=== PATIENT | male | born 1940 | race Caucasian/White ===

== ENCOUNTER → 2016-07-14 | Outpatient (CLI) | payer OTHER ==
[~2016-07-14] MED LIST: ACET-1311 PO; BETH10TA2 PO; CARV6.252 PO; CHOL200027 PO; CPR500 PO; DUTA0.5C PO; LEVE100S10 PO; LEVO112T4 PO; LEVO150T9 PO; NITR1CAP16 PO; PANT40TA PO; POLY335019 PO; POLYSOL4 OP; PTDOPS OP; TAMS0.4C38 PO; TRAZ50TA35 PO
[2016-07-14 09:40] LABS: BASO % 0.5 %; BASO ABS # 0.03 K/uL (0-0.2); COMPLETE YES; EOS % 0.5 %; HEMATOCRIT 32.5 % (42-52); IG% 2.2 %; LYMPH % 7.7 %; LYMPH ABS # 0.45 K/uL (1.2-3.4); MEAN CELL VOLUME 97.3 fL (80-100); MEAN CORPUSCULAR HEMOGLOBIN 32.3 pg (25-34); MEAN CORPUSCULAR HGB CONC 33.2 g/dl (32-36); MEAN PLATELET VOLUME 8.4 fL (7.4-10.4); MONO % 12.1 %; PLATELET COUNT 264 K/uL (130-400); RED BLOOD COUNT 3.34 M/uL (4.7-6.1); WHITE BLOOD COUNT 5.85 K/uL (4.8-10.8)
[2016-07-14 09:56] LABS: BLOOD UREA NITROGEN 10 mg/dl (7-18); CALCIUM 8.7 mg/dl (8.5-10.1); CARBON DIOXIDE 32 mmol/L (21-32); CHLORIDE 99 mmol/L (98-107); CREATININE 0.72 mg/dl (0.60-1.40); GLUCOSE 134 mg/dl (70-99); POTASSIUM 4.2 mmol/L (3.5-5.1); SODIUM 139 mmol/L (136-145)
== END ==
LOC: C.LABVPSUA 08:47
PROVIDERS: ATTEND Internal Medicine Critical Care Medicine
DX: G93.41 Metabolic encephalopathy (principal)

== ENCOUNTER 2016-07-26 09:00 | Emergency (ER) | payer OTHER ==
[~2016-07-26] VITALS: Ht 167.6 cm; Wt 81.2 kg
[2016-07-26 09:13] VITALS: TEMP 36.6; Ht 167.6 cm; Wt 81.2 kg
--- NOTE | 2016-07-26 09:51 | EMERGENCY ROOM VISIT NOTE ---
History Report prepared by Chevy: Rebel Masters Under the Supervision of: Dr. Agus Lowery M.D. First contact with patient: 09:23 Chief Complaint: ALTERED MENTAL STATUS Stated Complaint: ALTERED MENTAL STATUS History of Present Illness The patient is a 75 year old male who presents to the Emergency Room from [place] [facility] with complaints of constant bilateral lower extremity edema beginning several hours prior to arrival. As per , [place] called the , because they noticed the patient was experiencing bilateral lower extremity edema and increased urinary output. The states the patient had brain surgery on June 04 of last year. She notes the left side was impacted, and the patient has experienced left leg weakness. The states the patient is able to ambulate with a walker. She notes the patient's mental status has been consistent since the surgery. The patient associates left hip pain with today's symptoms. He notes the left hip pain worsens with pushing on the area. The states the patient has a Segura catheter in place. She denies the patient experiencing a fall recently. The states the patient is on Levothyroxine, mild blood pressure medication, Keppra, and Flomax. She denies the patient being on a blood thinner. The patient denies chest pain, shortness of breath, nausea, vomiting, and abdominal pain. 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 Review of Systems All systems have been listed, reviewed, and are negative other than those previously mentioned. Please see Additional Medical History Sheet. Past Medical & Surgical Medical Problems: (1) Brain bleed (2) Hernia (3) Hypertension (4) Hypothyroid (5) Melanoma (6) Osteoporosis (7) Seizures (8) Thyroid cancer Surgical Problems: (1) S/P brain surgery (2) S/P thyroidectomy Family History Cancer FH: osteoporosis Social History Smoking Status: Never Smoker Marital Status: Housing Status: lives with significant other Occupation Status: retired Current/Historical Medications Scheduled Bethanechol Chloride (Bethanechol Chloride), 10 MG PO TIDM Carvedilol (Coreg), 6.25 MG PO BIDM Cholecalciferol (Vitamin D-3), 2,000 UNITS PO QAM Levetiracetam (Keppra), 1,000 MG PO BID Levothyroxine Sodium (Levothyroxine Sodium), 112 MCG PO DAILYBB Nitrofurantoin Monohyd Macro (Macrobid), 100 MG PO BID Olopatadine Hydrochloride (Pataday), 1 DROPS OP QAM Pantoprazole (Protonix), 40 MG PO QAM Polyethylene Glycol 3350 (Miralax), 17 GM PO QAM Tamsulosin Hcl (Flomax), 0.8 MG PO QPM Trazodone Hcl (Trazodone), 25 MG PO HS Scheduled PRN Acetaminophen (Tylenol), 650 MG PO Q4 PRN for Pain Polyethylene Glycol-Propylene (Systane), 1 DROPS OP QID PRN for DRY EYES Allergies Coded Allergies: Sulfamethoxazole w/Trimethoprim (Verified Allergy, Unknown, unknown, ) Physical Exam Vital Signs Date Time Temp Pulse Resp B/P Pulse Ox O2 Delivery O2 Flow Rate FiO2 07/26/16 12:59 61 16 160/72 100 07/26/16 12:30 60 13 100 07/26/16 12:30 60 13 100 07/26/16 12:28 139/86 07/26/16 12:28 139/86 07/26/16 12:00 59 12 100 07/26/16 12:00 59 12 100 07/26/16 11:59 162/97 07/26/16 11:59 162/97 07/26/16 11:30 57 12 100 07/26/16 11:30 57 12 100 07/26/16 11:28 136/81 07/26/16 11:28 136/81 07/26/16 11:14 69 07/26/16 11:07 69 20 157/96 100 Room Air 07/26/16 10:59 157/96 07/26/16 10:59 157/96 07/26/16 10:26 100 Room Air 07/26/16 09:13 36.6 62 18 162/90 98 Room Air Physical Exam GENERAL: Patient awake, alert, oriented x 3. Patient follows commands. Patient does not appear toxic. Patient is adequately hydrated and well- nourished. SKIN: No erythema, pallor, cyanosis or rash HEENT: Well healed scar on top of his head without signs of infection. Normal head, pupils equal, reactive to light and accommodation. Ears normal. Oral cavity and posterior pharynx appear normal. Neck: Without adenopathy, no neck vein distention. LUNGS: Clear to auscultation. No wheezes, no rales, no rhonchi. HEART: No murmurs. No gallops. No rubs ABDOMEN: No masses, no rebound, no hepatomegaly or splenomegaly. EXTREMITIES: No signs of trauma. 2+ right leg, 3+ left leg pedal and pretibial edema, nonpitting. No calf or thigh tenderness. NEUROLOGIC: Cranial nerves II-XII within normal limits. Patient does have some weakness especially in the left leg which is thought to be secondary to prior neurological events. Medical Decision & Procedures ER Provider Diagnostic Interpretation: X ray results are stated below per my interpretation and the radiologist's interpretation. CHEST ONE VIEW PORTABLE CLINICAL HISTORY: peripheral edema pain COMPARISON STUDY: No previous studies for comparison. FINDINGS: The bones soft tissues and hemidiaphragms are normal. The cardiomediastinal silhouette is normal. The lungs are clear. The pulmonary vasculature is normal. IMPRESSION: Negative chest. Electronically signed by: Shaq Covarrubias M.D. 07/26/2016 10:01 AM LEFT PELVIS/UNILATERAL HIP 2-3VIEWS CLINICAL HISTORY: hip pain pain COMPARISON: None. DISCUSSION: Mild degenerative change of the hips bilaterally. No evidence for acetabular protrusion. No evidence for fracture or dislocation. IMPRESSION: Mild degenerative changes of the hips bilaterally. No acute process. Electronically signed by: Shaq Covarrubias M.D. 07/26/2016 9:58 AM Laboratory Results 07/26/16 10:05 Red Blood Count 3.60, Mean Corpuscular Volume 97.5, Mean Corpuscular Hemoglobin 32.8, Mean Corpuscular Hemoglobin Concent 33.6, Mean Platelet Volume 8.3, Neutrophils (%) (Auto) 76.1, Lymphocytes (%) (Auto) 10.7, Monocytes (%) (Auto) 8.3, Eosinophils (%) (Auto) 3.2, Basophils (%) (Auto) 0.3, Neutrophils # (Auto) 4.46, Lymphocytes # (Auto) 0.63, Monocytes # (Auto) 0.49, Eosinophils # (Auto) 0.19, Basophils # (Auto) 0.02 07/26/16 10:05 Test 07/26/16 10:05 07/26/16 10:25 White Blood Count 5.87 K/uL (4.8-10.8) Red Blood Count 3.60 M/uL (4.7-6.1) Hemoglobin 11.8 g/dL (14.0-18.0) Hematocrit 35.1 % (42-52) Mean Corpuscular Volume 97.5 fL (80-100) Mean Corpuscular Hemoglobin 32.8 pg (25-34) Mean Corpuscular Hemoglobin Concent 33.6 g/dl (32-36) Platelet Count 227 K/uL (130-400) Mean Platelet Volume 8.3 fL (7.4-10.4) Neutrophils (%) (Auto) 76.1 % Lymphocytes (%) (Auto) 10.7 % Monocytes (%) (Auto) 8.3 % Eosinophils (%) (Auto) 3.2 % Basophils (%) (Auto) 0.3 % Neutrophils # (Auto) 4.46 K/uL (1.4-6.5) Lymphocytes # (Auto) 0.63 K/uL (1.2-3.4) Monocytes # (Auto) 0.49 K/uL (0.11-0.59) Eosinophils # (Auto) 0.19 K/uL (0-0.5) Basophils # (Auto) 0.02 K/uL (0-0.2) RDW Standard Deviation 52.6 fL (36.4-46.3) RDW Coefficient of Variation 14.8 % (11.5-14.5) Immature Granulocyte % (Auto) 1.4 % Immature Granulocyte # (Auto) 0.08 K/uL (0.00-0.02) Anion Gap 8.0 mmol/L (3-11) Est Creatinine Clear Calc Drug Dose 98.2 ml/min Estimated GFR () 110.5 Estimated GFR (Non- 95.3 BUN/Creatinine Ratio 14.9 (10-20) Calcium Level 8.7 mg/dl (8.5-10.1) Total Bilirubin 0.5 mg/dl (0.2-1) Aspartate Amino Transf (AST/SGOT) 41 U/L (15-37) Alanine Aminotransferase (ALT/SGPT) 71 U/L (12-78) Alkaline Phosphatase 155 U/L (45-117) Troponin I < 0.015 ng/ml (0-0.045) Total Protein 6.8 gm/dl (6.4-8.2) Albumin 2.8 gm/dl (3.4-5.0) Globulin 4.0 gm/dl (2.5-4.0) Albumin/Globulin Ratio 0.7 (0.9-2) Urine Color YELLOW Urine Appearance TURBID (CLEAR) Urine pH 8.0 (4.5-7.5) Urine Specific [place] 1.007 (1.000-1.030) Urine Protein NEG (NEG) Urine Glucose (UA) NEG (NEG) Urine Ketones NEG (NEG) Urine Occult Blood 1+ (NEG) Urine Nitrite NEG (NEG) Urine Bilirubin NEG (NEG) Urine Urobilinogen NEG (NEG) Urine Leukocyte Esterase LARGE (NEG) Urine WBC (Auto) >30 /hpf (0-5) Urine RBC (Auto) 0-4 /hpf (0-4) Urine Hyaline Casts (Auto) /lpf (0-5) Urine Epithelial Cells (Auto) >30 /lpf (0-5) Urine Bacteria (Auto) 4+ (NEG) Urine Renal Epithelial Cells /lpf (0-5) Urine Pathogenic Casts 0-3 GRANULAR CASTS /lpf (0) Laboratory results as stated above per my review. Medications Administered Medications (Trade) Dose Ordered Sig/Melissa Route Start Time Stop Time Status Last Admin Dose Admin Nitrofurantoin Macrocrystals (Macrobid Cap) 100 mg ONE ONCE PO 07/26/16 12:15 07/26/16 12:16 DC 07/26/16 12:58 100 MG ECG Indication: altered mental status Rate (beats per minute): 63 Rhythm: normal sinus Findings: 1st degree AV block, LBBB (incomplete), no acute ischemic change, no ectopy ED Course 09: Past medical records reviewed. The patient was evaluated in room C6. A complete history and physical examination was performed. 1215: Ordered Macrobid Cap 100 mg PO. 1159: Upon reevaluation, the patient appeared to have improvement of his symptoms. I discussed today's findings with the patient and his . He and his verbalized agreement of the treatment plan. The patient was discharged home. Medical Decision Nurses notes reviewed. Medical history sheet reviewed. Differential diagnosis includes but is not limited to: peripheral edema, congestive heart failure, left hip fracture, metabolic disorder. According to the patient's his mental status is unchanged from the recent past. The patient does complain of some left hip pain. Multiple labs, EKG, urinalysis and imaging were obtained. Please see above. The patient does not have evidence of congestive failure. He has no hip fracture. The patient has a urinary tract infection. The Segura will be replaced and the patient will be started on Macrobid. The patient is to follow- up with Dr. Nobles and urology . I do not believe the patient is having any acute intracerebral problems including bleeds or CVA/TIA. Impression Primary Impression: Urinary tract infection Scribe Attestation The scribe's documentation has been prepared under my direction and personally reviewed by me in its entirety. I confirm that the note above accurately reflects all work, treatment, procedures, and medical decision making performed by me. Departure Information Dispostion Home / Self-Care Prescriptions Nitrofurantoin Monohyd Macro (MACROBID) 100 Mg Cap 100 MG PO BID, #19 CAP Prov: Agus Lowery M.D. 07/26/16 Referrals [facility] (PCP) Forms HOME CARE DOCUMENTATION FORM, IMPORTANT VISIT INFORMATION Patient Instructions My [facility] Additional Instructions 1 Macrobid twice a day for 10 days. Follow-up with urology on Wednesday. Follow-up with Dr. Nobles. Continue all of your current medications as prescribed.
--- NOTE | 2016-07-26 09:59 | DIAGNOSTIC IMAGING REPORT ---
LEFT PELVIS/UNILATERAL HIP 2-3VIEWS CLINICAL HISTORY: hip pain pain COMPARISON: None. DISCUSSION: Mild degenerative change of the hips bilaterally. No evidence for acetabular protrusion. No evidence for fracture or dislocation. IMPRESSION: Mild degenerative changes of the hips bilaterally. No acute process. Electronically signed by: Shaq Covarrubias M.D. 07/26/2016 9:58 AM Dictated Date/Time: 07/26/2016 9:56 AM
--- NOTE | 2016-07-26 10:02 | DIAGNOSTIC IMAGING REPORT ---
CHEST ONE VIEW PORTABLE CLINICAL HISTORY: peripheral edema pain COMPARISON STUDY: No previous studies for comparison. FINDINGS: The bones soft tissues and hemidiaphragms are normal. The cardiomediastinal silhouette is normal. The lungs are clear. The pulmonary vasculature is normal. IMPRESSION: Negative chest. Electronically signed by: Shaq Covarrubias M.D. 07/26/2016 10:01 AM Dictated Date/Time: 07/26/2016 10:00 AM
[2016-07-26 10:14] LABS: BASO % 0.3 %; BASO ABS # 0.02 K/uL (0-0.2); COMPLETE YES; EOS % 3.2 %; HEMATOCRIT 35.1 % (42-52); IG% 1.4 %; LYMPH % 10.7 %; LYMPH ABS # 0.63 K/uL (1.2-3.4); MEAN CELL VOLUME 97.5 fL (80-100); MEAN CORPUSCULAR HEMOGLOBIN 32.8 pg (25-34); MEAN CORPUSCULAR HGB CONC 33.6 g/dl (32-36); MEAN PLATELET VOLUME 8.3 fL (7.4-10.4); MONO % 8.3 %; NEUT % 76.1 %; PLATELET COUNT 227 K/uL (130-400); WHITE BLOOD COUNT 5.87 K/uL (4.8-10.8)
[2016-07-26] MEDS ORDERED: PTDOPS OP (10:15)
[2016-07-26] MEDS ORDERED: PANT40TA PO (10:15)
[2016-07-26] MEDS ORDERED: CHOL200027 PO (10:15)
[2016-07-26] MEDS ORDERED: TRAZ50TA35 PO (10:15)
[2016-07-26] MEDS ORDERED: LEVE100S10 PO (10:15)
[2016-07-26] MEDS ORDERED: POLY335019 PO (10:15)
[2016-07-26] MEDS ORDERED: CARV6.252 PO (10:15)
[2016-07-26] MEDS ORDERED: LEVO112T4 PO (10:15)
[2016-07-26] MEDS ORDERED: TAMS0.4C38 PO (10:15)
[2016-07-26] MEDS ORDERED: BETH10TA2 PO (10:15)
[2016-07-26] MEDS ORDERED: POLYSOL4 OP (10:16)
[2016-07-26] MEDS ORDERED: ACET-1311 PO (10:16)
[2016-07-26 10:26] VITALS: O2SAT 100
[2016-07-26 10:27] LABS: ALT/SGPT 71 U/L (12-78); BLOOD UREA NITROGEN 10 mg/dl (7-18); BUN/CREATININE RATIO 14.9 (10-20); CALCIUM 8.7 mg/dl (8.5-10.1); CARBON DIOXIDE 32 mmol/L (21-32); CHLORIDE 102 mmol/L (98-107); CREATININE 0.67 mg/dl (0.60-1.40); GLUCOSE 110 mg/dl (70-99); POTASSIUM 3.7 mmol/L (3.5-5.1); SODIUM 142 mmol/L (136-145)
[2016-07-26 10:32] LABS: ALB/GLOB RATIO 0.7 (0.9-2); ALKALINE PHOSPHATASE 155 U/L (45-117); AST/SGOT 41 U/L (15-37)
[2016-07-26 10:40] LABS: URINE APPEARANCE TURBID (CLEAR); URINE BILIRUBIN NEG (NEG); URINE COLOR YELLOW; URINE EPITHELIAL CELL AUTO >30 /lpf (0-5); URINE NITRITE NEG (NEG); URINE SPECIFIC GRAVITY 1.007 (1.000-1.030); UROBILINOGEN NEG (NEG); ZZURINE CULT IF INDIC CATH YES
[2016-07-26 10:41] LABS: MANUAL MICROSCOPIC REQUIRED? NO; REVIEW REQ? YES
[2016-07-26 10:50] LABS: URINE PATH CASTS 0-3 GRANULAR CASTS /lpf (0)
[2016-07-26] MEDS ORDERED: NITR1CAP16 PO (12:13)
[2016-07-26] MEDS ORDERED: NITROFURANTOIN MONOHYDRATE 100 MG CAP PO ONE (12:15)
[2016-07-26 12:59] VITALS: BP 160/72; PULSE 61; O2SAT 100
== END 2016-07-26 13:25 | disposition home or self-care (01) ==
LOC: C.EDC 09:00 → EDUNIT# 09:00 → EDBD 09:00 → C.EDC 13:25
DX: N39.0 Urinary tract infection, site not specified (principal); Z98.890 Other specified postprocedural states; I10 Essential (primary) hypertension; Z85.820 Personal history of malignant melanoma of skin; M81.0 Age-related osteoporosis without current pathological fracture; Z85.850 Personal history of malignant neoplasm of thyroid; E89.0 Postprocedural hypothyroidism; Z79.899 Other long term (current) drug therapy

== ENCOUNTER 2016-07-30 16:15 | Emergency (ER) | payer OTHER ==
[~2016-07-30] VITALS: Ht 167.6 cm; Wt 83.2 kg
[~2016-07-30 16:15] MED LIST changes: -CPR500 PO; -DUTA0.5C PO; -LEVO150T9 PO
[2016-07-30 16:26] VITALS: TEMP 36.9; Ht 167.6 cm; Wt 83.2 kg
[2016-07-30] MEDS ORDERED: CPR500 PO (17:03)
--- NOTE | 2016-07-30 17:14 | EMERGENCY ROOM VISIT NOTE ---
History Report prepared by Chevy: Akila Beasley Under the Supervision of: Dr. Samantha Roa M.D. First contact with patient: 16:33 Chief Complaint: HEAD PAIN Stated Complaint: SWELLING /HEAD AREA History of Present Illness The patient is a 75 year old male who presents to the Emergency Room with complaints of worsening pain to right side of head beginning this morning. The patient in May 2016 had brain surgery done in [place], [place]. He had the surgery for having a massive brain bleed, the cause is unknown. This morning the patient felt swelling at his surgical scar site and he also notes pain around the scar. The patient notes he did not have this pain or swelling yesterday. He does not state that the pain feels like a headache, it is more of an aching sensation. Patient does have an appointment tomorrow with neurology. He denies nausea, vomiting, shortness of breath, or chest pain. Patient states that since surgery his baseline is having slight confusion. Source of History: patient Onset: this morning Position: head (right side) Quality: ache, other (swelling) Timing: worsening Associated Symptoms: No SOB, No chest pain, No nausea, No vomiting Review of Systems See HPI for pertinent positives & negatives. A total of 10 systems reviewed and were otherwise negative. Past Medical & Surgical Medical Problems: (1) Brain bleed (2) Hernia (3) Hypertension (4) Hypothyroid (5) Melanoma (6) Osteoporosis (7) Seizures (8) Thyroid cancer Surgical Problems: (1) S/P brain surgery (2) S/P thyroidectomy Family History Cancer FH: osteoporosis Social History Smoking Status: Never Smoker Marital Status: Housing Status: lives with significant other Occupation Status: retired Current/Historical Medications Scheduled Bethanechol Chloride (Bethanechol Chloride), 10 MG PO TIDM Carvedilol (Coreg), 6.25 MG PO BIDM Cholecalciferol (Vitamin D-3), 2,000 UNITS PO QAM Ciprofloxacin (Ciprofloxacin HCl), 500 MG PO BID Levetiracetam (Keppra), 1,000 MG PO BID Levothyroxine Sodium (Levothyroxine Sodium), 112 MCG PO DAILYBB Olopatadine Hydrochloride (Pataday), 1 DROPS OP QAM Pantoprazole (Protonix), 40 MG PO QAM Polyethylene Glycol 3350 (Miralax), 17 GM PO QAM Tamsulosin Hcl (Flomax), 0.8 MG PO QPM Trazodone Hcl (Trazodone), 25 MG PO HS Scheduled PRN Acetaminophen (Tylenol), 650 MG PO Q4 PRN for Pain Polyethylene Glycol-Propylene (Systane), 1 DROPS OP QID PRN for DRY EYES Allergies Coded Allergies: Sulfamethoxazole w/Trimethoprim (Verified Allergy, Unknown, unknown, ) Physical Exam Vital Signs Date Time Temp Pulse Resp B/P Pulse Ox O2 Delivery O2 Flow Rate FiO2 07/30/16 21:24 76 25 157/94 96 Room Air 07/30/16 20:48 74 24 158/91 96 Room Air 07/30/16 20:03 69 16 160/96 93 Room Air 07/30/16 19:07 68 17 156/83 98 Room Air 07/30/16 17:30 72 21 179/106 93 Room Air 07/30/16 17:09 65 07/30/16 16:31 67 20 175/74 98 Room Air 07/30/16 16:26 36.9 64 19 155/79 98 Room Air Physical Exam Vital signs reviewed. General: Chronically ill elderly male, in no significant distress. HEENT: No scleral icterus, PERRLA, neck supple. Post cranial scar to right side of head with some soft tissue swelling, no overlying erythema, incision healing well. Cardiovascular: Regular rate and rhythm, no extra sounds. Pulmonary: Clear to auscultation bilaterally, normal work of breathing. Abdomen: Soft, nontender, nondistended, positive bowel sounds. Musculoskeletal: Atraumatic. Mild edema bilaterally to lower extremities with compression hose in place. Neurologic: Patient awake and responsive to questions. He is slightly confused to current events. Patient is able to follow commands. Skin: Warm, dry, no rash Medical Decision & Procedures ER Provider Diagnostic Interpretation: CT results as stated below per my review and radiologist interpretation: CT HEAD WITHOUT CONTRAST (CT) CLINICAL HISTORY: Right head swelling. History of intracranial hemorrhage. COMPARISON STUDY: No previous studies for comparison. TECHNIQUE: Axial CT of the brain is performed from the vertex to the skull base. IV contrast was not administered for this examination. CT DOSE: 634.23 mGy.cm FINDINGS: There is a 3.5 cm right frontal hemorrhage with a surrounding area of cystic encephalomalacia measuring 5 cm. There is no significant midline shift. There are postsurgical changes of a right frontotemporal craniotomy. There is subjacent dural thickening. There are patchy white matter hypodensities likely on a small vessel basis. There is no evidence of pathologic ventricular dilatation. There is no evidence of acute sinusitis IMPRESSION: 1. Postcraniotomy changes on the right with mild subjacent dural thickening 2. Large area of cystic encephalomalacia within the right frontal lobe. Inferiorly, there is a 3.5 cm parenchymal hemorrhage. 3. No evidence of midline shift. 4. Mild right-sided scalp edema overlying the craniotomy site Electronically signed by: Valentino iY M.D. 07/30/2016 6:15 PM Dictated Date/Time: 07/30/2016 6:11 PM Laboratory Results 07/30/16 17:30 Red Blood Count 3.54, Mean Corpuscular Volume 98.3, Mean Corpuscular Hemoglobin 31.9, Mean Corpuscular Hemoglobin Concent 32.5, Mean Platelet Volume 8.7, Neutrophils (%) (Auto) 69.4, Lymphocytes (%) (Auto) 14.0, Monocytes (%) (Auto) 11.2, Eosinophils (%) (Auto) 3.9, Basophils (%) (Auto) 0.4, Neutrophils # (Auto ) 3.23, Lymphocytes # (Auto) 0.65, Monocytes # (Auto) 0.52, Eosinophils # (Auto ) 0.18, Basophils # (Auto) 0.02 07/30/16 17:30 Test 07/30/16 17:30 07/30/16 19:30 White Blood Count 4.65 K/uL (4.8-10.8) Red Blood Count 3.54 M/uL (4.7-6.1) Hemoglobin 11.3 g/dL (14.0-18.0) Hematocrit 34.8 % (42-52) Mean Corpuscular Volume 98.3 fL (80-100) Mean Corpuscular Hemoglobin 31.9 pg (25-34) Mean Corpuscular Hemoglobin Concent 32.5 g/dl (32-36) Platelet Count 239 K/uL (130-400) Mean Platelet Volume 8.7 fL (7.4-10.4) Neutrophils (%) (Auto) 69.4 % Lymphocytes (%) (Auto) 14.0 % Monocytes (%) (Auto) 11.2 % Eosinophils (%) (Auto) 3.9 % Basophils (%) (Auto) 0.4 % Neutrophils # (Auto) 3.23 K/uL (1.4-6.5) Lymphocytes # (Auto) 0.65 K/uL (1.2-3.4) Monocytes # (Auto) 0.52 K/uL (0.11-0.59) Eosinophils # (Auto) 0.18 K/uL (0-0.5) Basophils # (Auto) 0.02 K/uL (0-0.2) RDW Standard Deviation 53.0 fL (36.4-46.3) RDW Coefficient of Variation 14.6 % (11.5-14.5) Immature Granulocyte % (Auto) 1.1 % Immature Granulocyte # (Auto) 0.05 K/uL (0.00-0.02) Prothrombin Time 9.7 SECONDS (9.0-12.0) Prothromb Time International Ratio 0.9 (0.9-1.1) Activated Partial Thromboplast Time 25.2 SECONDS (21.0-31.0) Partial Thromboplastin Ratio 1.0 Anion Gap 6.0 mmol/L (3-11) Est Creatinine Clear Calc Drug Dose 88.8 ml/min Estimated GFR () 105.5 Estimated GFR (Non- 91.0 BUN/Creatinine Ratio 16.6 (10-20) Calcium Level 9.1 mg/dl (8.5-10.1) Total Bilirubin 0.4 mg/dl (0.2-1) Direct Bilirubin < 0.1 mg/dl (0-0.2) Aspartate Amino Transf (AST/SGOT) 23 U/L (15-37) Alanine Aminotransferase (ALT/SGPT) 45 U/L (12-78) Alkaline Phosphatase 133 U/L (45-117) Total Protein 7.1 gm/dl (6.4-8.2) Albumin 3.1 gm/dl (3.4-5.0) Urine Color YELLOW Urine Appearance CLEAR (CLEAR) Urine pH 8.0 (4.5-7.5) Urine Specific [place] 1.005 (1.000-1.030) Urine Protein NEG (NEG) Urine Glucose (UA) NEG (NEG) Urine Ketones NEG (NEG) Urine Occult Blood NEG (NEG) Urine Nitrite NEG (NEG) Urine Bilirubin NEG (NEG) Urine Urobilinogen NEG (NEG) Urine Leukocyte Esterase TRACE (NEG) Urine WBC (Auto) 1-5 /hpf (0-5) Urine RBC (Auto) 0-4 /hpf (0-4) Urine Hyaline Casts (Auto) 0 /lpf (0-5) Urine Epithelial Cells (Auto) 0-5 /lpf (0-5) Urine Bacteria (Auto) NEG (NEG) Laboratory results per my review. Medications Administered Medications (Trade) Dose Ordered Sig/Melissa Route Start Time Stop Time Status Last Admin Dose Admin Fentanyl Citrate (Fentanyl Inj) 50 mcg NOW STAT IV 07/30/16 21:14 07/30/16 21:15 DC 07/30/16 21:19 50 MCG ED Course 1705: Past medical records reviewed. The patient was evaluated in room B8. A complete history and physical examination was performed. 1822: I discussed the patient's CT results with him and his . 1844: I reviewed the patient's case with Dr. Watkins - [facility]. He will evaluate the patient for further management. 1851: I discussed with the patient and his the plan for transfer and informed them on what Dr. Watkins said. 2113: Fentanyl Inj 50 mcg IV. 2115: The patient will be transferred to [facility] for further evaluation by Neurology via ALS. Medical Decision The patient is a 75 year old male who presents to the ED with complaints of head pain. Differentials include Intracranial hemorrhage, intracranial mass, migraine headache, tension headache , sinusitis, meningitis, post surgical infection. This patient was evaluated and appeared to be in no significant distress. Physical examination reveals an elderly male with some chronic illness. He has a swelling over the right spiritism over the surgical scar. CT scan of the head was performed and reveals intraparenchymal hemorrhage in an area of encephalomalacia. There is no previous CT scan of the head at our facility. The patient had his surgery in [place]. According to radiology, it is difficult to assess whether or not this is acute blood. Does not appear to be causing any midline shift. I did discuss case with Dr. Watkins of neurosurgery at [facility]. He has agreed to accept the patient in transfer. As the patient seems to not have any serious sequelae of the bleed on head CT at this time, the patient will be sent by ground to [facility]. Patient was given 50 mg of IV fentanyl prior to transfer for lower back pain. Patient and family are aware of the plan and agree. Consults Time Called: 1842 Consulting Physician: Dr. [facility] Returned Call: [phone] I reviewed the patient's case with Dr. [facility]. He will evaluate the patient for further management. Impression Primary Impression: Intraparenchymal hemorrhage of brain Critical Care I have personally spent greater than 35 minutes of critical care time in the direct management of this patient. This includes bedside care, interpretation of diagnostic studies, and testing, discussion with consultants, patient, and family members, and other required patient management activities. This 35 minutes is in excess of all separately billable procedures. Scribe Attestation The scribe's documentation has been prepared under my direction and personally reviewed by me in its entirety. I confirm that the note above accurately reflects all work, treatment, procedures, and medical decision making performed by me. Departure Information Dispostion Transfer Acute Care Facility ([facility]) Referrals [facility] (PCP)
[2016-07-30 18:01] LABS: BASO % 0.4 %; BASO ABS # 0.02 K/uL (0-0.2); COMPLETE YES; EOS % 3.9 %; HEMATOCRIT 34.8 % (42-52); IG% 1.1 %; LYMPH ABS # 0.65 K/uL (1.2-3.4); MEAN CELL VOLUME 98.3 fL (80-100); MEAN CORPUSCULAR HEMOGLOBIN 31.9 pg (25-34); MEAN CORPUSCULAR HGB CONC 32.5 g/dl (32-36); MEAN PLATELET VOLUME 8.7 fL (7.4-10.4); MONO % 11.2 %; NEUT % 69.4 %; PLATELET COUNT 239 K/uL (130-400); RED BLOOD COUNT 3.54 M/uL (4.7-6.1); WHITE BLOOD COUNT 4.65 K/uL (4.8-10.8)
[2016-07-30 18:15] LABS: INR 0.9 (0.9-1.1); PROTHROMBIN TIME (PATIENT) 9.7 SECONDS (9.0-12.0)
--- NOTE | 2016-07-30 18:16 | DIAGNOSTIC IMAGING REPORT ---
CT HEAD WITHOUT CONTRAST (CT) CLINICAL HISTORY: Right head swelling. History of intracranial hemorrhage. COMPARISON STUDY: No previous studies for comparison. TECHNIQUE: Axial CT of the brain is performed from the vertex to the skull base. IV contrast was not administered for this examination. CT DOSE: 634.23 mGy.cm FINDINGS: There is a 3.5 cm right frontal hemorrhage with a surrounding area of cystic encephalomalacia measuring 5 cm. There is no significant midline shift. There are postsurgical changes of a right frontotemporal craniotomy. There is subjacent dural thickening. There are patchy white matter hypodensities likely on a small vessel basis. There is no evidence of pathologic ventricular dilatation. There is no evidence of acute sinusitis IMPRESSION: 1. Postcraniotomy changes on the right with mild subjacent dural thickening 2. Large area of cystic encephalomalacia within the right frontal lobe. Inferiorly, there is a 3.5 cm parenchymal hemorrhage. 3. No evidence of midline shift. 4. Mild right-sided scalp edema overlying the craniotomy site Electronically signed by: Valentino Yi M.D. 07/30/2016 6:15 PM Dictated Date/Time: 07/30/2016 6:11 PM
[2016-07-30 18:29] LABS: ALT/SGPT 45 U/L (12-78); AST/SGOT 23 U/L (15-37); BLOOD UREA NITROGEN 12 mg/dl (7-18); BUN/CREATININE RATIO 16.6 (10-20); CALCIUM 9.1 mg/dl (8.5-10.1); CARBON DIOXIDE 35 mmol/L (21-32); CHLORIDE 102 mmol/L (98-107); CREATININE 0.75 mg/dl (0.60-1.40); GLUCOSE 97 mg/dl (70-99); POTASSIUM 3.9 mmol/L (3.5-5.1); SODIUM 143 mmol/L (136-145)
[2016-07-30 18:31] LABS: ALKALINE PHOSPHATASE 133 U/L (45-117)
[2016-07-30 19:49] LABS: URINE APPEARANCE CLEAR (CLEAR); URINE BILIRUBIN NEG (NEG); URINE COLOR YELLOW; URINE EPITHELIAL CELL AUTO 0-5 /lpf (0-5); URINE NITRITE NEG (NEG); URINE SPECIFIC GRAVITY 1.005 (1.000-1.030); UROBILINOGEN NEG (NEG); ZZUR CULT IF INDIC CLEAN CATCH NO
[2016-07-30 19:51] LABS: MANUAL MICROSCOPIC REQUIRED? NO; REVIEW REQ? NO
[2016-07-30] MEDS ORDERED: FENTANYL CITRATE INJ 50 MCG/1 ML 2 ML VIAL IV STA (21:14)
[2016-07-30] MEDS ORDERED: FENTANYL CITRATE INJ 50 MCG/1 ML 2 ML VIAL ONE (21:14)
[2016-07-30 21:24] VITALS: BP 157/94; PULSE 76; O2SAT 96
== END 2016-07-30 21:26 | disposition short-term general hospital (02) ==
LOC: EDBD 16:15 → C.EDB 16:19
DX: I61.9 Nontraumatic intracerebral hemorrhage, unspecified (principal); I10 Essential (primary) hypertension; M81.0 Age-related osteoporosis without current pathological fracture; Z85.850 Personal history of malignant neoplasm of thyroid; E89.0 Postprocedural hypothyroidism; Z82.62 Family history of osteoporosis; Z79.899 Other long term (current) drug therapy; R33.9 Retention of urine, unspecified; N13.9 Obstructive and reflux uropathy, unspecified; R53.81 Other malaise

== ENCOUNTER → 2016-07-30 | Outpatient (CLI) | payer OTHER ==
[2016-07-30 09:58] LABS: HEMATOCRIT 34.3 % (42-52); MEAN CORPUSCULAR HEMOGLOBIN 32.4 pg (25-34); MEAN CORPUSCULAR HGB CONC 32.4 g/dl (32-36); PLATELET COUNT 223 K/uL (130-400); RED BLOOD COUNT 3.43 M/uL (4.7-6.1); WHITE BLOOD COUNT 4.51 K/uL (4.8-10.8)
[2016-07-30 10:09] LABS: BLOOD UREA NITROGEN 11 mg/dl (7-18); BUN/CREATININE RATIO 12.4 (10-20); CALCIUM 9.1 mg/dl (8.5-10.1); CARBON DIOXIDE 32 mmol/L (21-32); CHLORIDE 100 mmol/L (98-107); CREATININE 0.91 mg/dl (0.60-1.40); GLUCOSE 187 mg/dl (70-99); POTASSIUM 3.7 mmol/L (3.5-5.1); SODIUM 137 mmol/L (136-145)
== END | disposition home or self-care (01) ==
LOC: C.LABVPSUA 09:21
PROVIDERS: ATTEND Internal Medicine Critical Care Medicine
DX: R33.9 Retention of urine, unspecified (principal); N13.9 Obstructive and reflux uropathy, unspecified; R53.81 Other malaise

== ENCOUNTER → 2016-08-03 | Outpatient (CLI) | payer OTHER ==
[~2016-08-03] MED LIST changes: +CPR500 PO; +DUTA0.5C PO; +LEVO150T9 PO; -NITR1CAP16 PO
== END | disposition home or self-care (01) ==
LOC: C.LABVPSUA 09:12
PROVIDERS: ATTEND Internal Medicine Critical Care Medicine
DX: Z85.850 Personal history of malignant neoplasm of thyroid (principal)

== ENCOUNTER → 2016-08-04 | Outpatient (CLI) | payer OTHER | LOC: C.LABVPSUA 15:10 | PROVIDERS: ATTEND Internal Medicine Critical Care Medicine | DX: R56.9 Unspecified convulsions (principal) ==

== ENCOUNTER → 2016-08-06 | Outpatient (CLI) | payer OTHER ==
--- NOTE | 2016-08-08 06:08 | CODING QUERY NO DIAGNOSIS ---
TREATMENT RENDERED WITHOUT A DIAGNOSIS To promote full compliance with coding requirements relating to patient care, physician participation is requested in all cases of bank analyst uncertainty. Please assist us with providing a diagnosis/symptom for the test(s) below: A diagnosis/symptom was not documented on your Order. A valid diagnosis/symptom is required to bill all insurances. Please remember that we are unable to code a diagnosis of rule out, probable, possible, questionable, or suspected. Tests that require a diagnosis: DOS: 08/06/16 * TSH DIAGNOSIS: Provider Signature: Date: Thank you Thelma [facility] Information Management Once completed, please kindly fax back to [phone] For questions please call [phone]
== END ==
LOC: C.LABVPSUA 09:30
PROVIDERS: ATTEND Internal Medicine Critical Care Medicine
DX: E03.9 Hypothyroidism, unspecified (principal)

== ENCOUNTER 2016-08-14 17:01 | Emergency (ER) | payer OTHER ==
[~2016-08-14] VITALS: Ht 172.7 cm; Wt 81.0 kg
[~2016-08-14 17:01] MED LIST changes: -DUTA0.5C PO; -LEVO150T9 PO
[2016-08-14 17:09] VITALS: TEMP 36.9; Ht 172.7 cm; Wt 81.0 kg
[2016-08-14] MEDS ORDERED: NiCARDipine IV 25 MG in SODIUM CHLORIDE 0.9% 250ML 240 ML IV STA (17:36)
[2016-08-14 17:47] LABS: BASO % 0.2 %; BASO ABS # 0.01 K/uL (0-0.2); COMPLETE YES; EOS % 2.7 %; HEMATOCRIT 37.3 % (42-52); IG% 0.8 %; LYMPH % 15.6 %; LYMPH ABS # 0.81 K/uL (1.2-3.4); MEAN CELL VOLUME 92.3 fL (80-100); MEAN CORPUSCULAR HEMOGLOBIN 30.7 pg (25-34); MEAN CORPUSCULAR HGB CONC 33.2 g/dl (32-36); MEAN PLATELET VOLUME 8.3 fL (7.4-10.4); MONO % 7.1 %; NEUT % 73.6 %; PLATELET COUNT 249 K/uL (130-400); RED BLOOD COUNT 4.04 M/uL (4.7-6.1); WHITE BLOOD COUNT 5.18 K/uL (4.8-10.8)
[2016-08-14 17:53] LABS: BLOOD UREA NITROGEN 13 mg/dl (7-18); BUN/CREATININE RATIO 17.6 (10-20); CALCIUM 9.7 mg/dl (8.5-10.1); CARBON DIOXIDE 31 mmol/L (21-32); CHLORIDE 102 mmol/L (98-107); CREATININE 0.72 mg/dl (0.60-1.40); GLUCOSE 114 mg/dl (70-99); POTASSIUM 4.1 mmol/L (3.5-5.1); SODIUM 140 mmol/L (136-145)
[2016-08-14 17:59] LABS: INR 0.9 (0.9-1.1); PARTIAL THROMBOPLASTIN RATIO 0.9
[2016-08-14] MEDS ORDERED: LEVO150T9 PO (18:16)
[2016-08-14] MEDS ORDERED: DUTA0.5C PO (18:16)
[2016-08-14 18:57] VITALS: BP 155/83; PULSE 72; O2SAT 96
--- NOTE | 2016-08-14 23:20 | EMERGENCY ROOM VISIT NOTE ---
History Report prepared by Joseiblaurence: Shilpa Mills Under the Supervision of: Dr. Seferino Leonardo M.D. First contact with patient: 17:23 Chief Complaint: NEURO SYMPTOMS Stated Complaint: RT SCIENTOLOGY HEMATOMA Nursing Triage Summary: pt to the ED via EMS from home after having a follow up MRI today and was told that he has some bleeding on his brain that was worsening than previous MRI pt daughter reports pt became confused last night at 6pm saying that he bought a red porsch. pt has some increasing swelling to the right temporal region pt daughter reported pt fell 2 nights ago pt has no c/o pain and is confused. 4/5 UE and 4/5 LE strength History of Present Illness The patient is a 75 year old male who presents to the Emergency Room with complaints of an abnormal MRI. He was brought to the ED via EMS from home and is accompanied by his and daughter. His reports he underwent a "major craniotomy" in May 2016 at [facility] after he was found to have "minor brain bleeding". She states the doctors never figured out what caused the bleed. The patient is not currently on any blood thinners. Earlier today the patient had a follow up brain MRI which showed "a large hematoma in his right temporal lobe" which was worse than previous bleeding seen on CT scan in July 2016. The patient's daughter reports he fell out of bed 2 days ago, while trying to get up on his own. He had been staying at the [facility] and was found by nursing staff on his knees near the bed, but the incident was unwitnessed. The patient currently complains of feeling "a little cold" and "confused" here in the ED. He denies any headache or new numbness or weakness in any of his extremities.His states that he normally has weakness to the lower extremities, especially left. His states his confusion has been persistent since he underwent surgery in May. The patient does not have a history of hypertension. 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 A total of 10 systems reviewed and were otherwise negative. Past Medical & Surgical Medical Problems: (1) Brain bleed (2) Hernia (3) Hypertension (4) Hypothyroid (5) Melanoma (6) Osteoporosis (7) Seizures (8) Thyroid cancer Surgical Problems: (1) S/P brain surgery (2) S/P thyroidectomy Family History Cancer FH: osteoporosis Social History Smoking Status: Never Smoker Alcohol Use: none Drug Use: none Marital Status: Housing Status: lives with significant other Occupation Status: retired Current/Historical Medications Scheduled Carvedilol (Coreg), 6.25 MG PO BIDM Cholecalciferol (Vitamin D-3), 2,000 UNITS PO QAM Dutasteride (Avodart), 0.5 MG PO DAILY Levetiracetam (Keppra), 1,000 MG PO BID Levothyroxine Sodium (Levothyroxine Sodium), 1 TAB PO DAILY Olopatadine Hydrochloride (Pataday), 1 DROPS OP QAM Pantoprazole (Protonix), 40 MG PO QAM Polyethylene Glycol 3350 (Miralax), 17 GM PO QAM Trazodone Hcl (Trazodone), 25 MG PO HS Scheduled PRN Acetaminophen (Tylenol), 650 MG PO Q4 PRN for Pain Polyethylene Glycol-Propylene (Systane), 1 DROPS OP QID PRN for DRY EYES Allergies Coded Allergies: Sulfamethoxazole w/Trimethoprim (Verified Allergy, Unknown, unknown, ) Physical Exam Vital Signs Date Time Temp Pulse Resp B/P Pulse Ox O2 Delivery O2 Flow Rate FiO2 08/14/16 18:57 72 16 155/83 96 Room Air 08/14/16 18:49 70 16 160/74 96 Room Air 08/14/16 18:30 72 15 147/78 97 Room Air 08/14/16 18:21 74 22 154/84 96 08/14/16 18:10 72 19 144/77 98 Room Air 08/14/16 18:02 66 12 140/82 97 Room Air 08/14/16 17:56 63 20 175/85 95 08/14/16 17:53 64 152/80 08/14/16 17:52 67 194/92 08/14/16 17:11 63 08/14/16 17:09 36.9 64 20 191/96 97 Room Air Physical Exam Constitutional: Vital signs reviewed. Eyes: Pupils are equal round reactive to light. Conjunctiva are noninjected. ENT: Pharynx is clear without erythema or exudate. Mucous membranes are moist. Neck supple without meningeal signs. Respiratory: Clear to auscultation bilaterally. Breath sounds are equal bilaterally. Cardiovascular: Regular rate and rhythm. No rubs or gallops. GI: Soft, nondistended and nontender. Bowel sounds are present. Musculoskeletal: No peripheral edema. No lower extremity tenderness. Integumentary: No cyanosis. Neurological: The patient is awake and alert. Cranial nerves II-XII are intact , although the patient would not cooperate fully. He would not smile but he has no facial droop. Sensation is intact to light touch all extremities. Weakness to the left leg, difficulty testing proximal right limb. Normal speech. No pronator drift. No dysdiadochokinesis. No limb ataxia. Psychiatric: Normal affect. Medical Decision & Procedures ER Provider Diagnostic Interpretation: This MRI was reviewed and interpreted by the radiologist and reviewed by myself. MRI OF THE BRAIN COMBO CLINICAL HISTORY: Follow-up intracranial hemorrhage. COMPARISON STUDY: CT of the brain dated 07/30/2016. TECHNIQUE: MRI of the brain was performed utilizing various T1 and T2-weighted sequences in the axial, sagittal, and coronal planes. Contrast-enhanced sequences were acquired following the administration of 7.8 cc of Gadavist. FINDINGS: Brain parenchyma: There is a large hematoma centered in the right temporal lobe which measures 2.8 x 3.8 x 3.5 cm. There is surrounding edema with effacement of the overlying cortical sulci and the right lateral ventricle. Only minimal midline shift is seen. A large focus of right frontal encephalomalacia is similar to previous. A small volume of hemorrhage is also seen within the right frontal lobe anterior and inferior to the site of encephalomalacia. This measures up to 11 mm. T1 hyperintense material within the encephalomalacia cavity may represent chronic change or blood products. There is no restricted diffusion typical for acute ischemia. No enhancing mass lesion is identified on the postcontrast images. There are age-related involutional changes noting mild patchy subcortical and periventricular microangiopathic disease. Mild dural thickening and enhancement due to the right-sided craniotomy site likely represents postoperative change. No extra-axial fluid collection is seen. The cerebellar tonsils are normal in configuration. Ventricles, sulci, and cisterns: See above. No intraventricular hemorrhage is seen. Pituitary and sella: Mild mucosal thickening is seen within the maxillary antra and ethmoid sinuses. There is a right mastoid effusion. Intracranial vasculature: Normal flow voids are maintained at the skull base. Orbits: The bony orbits are grossly intact. Orbital contents are normal in appearance. Sinuses and mastoids: Clear. Calvarium: There are changes from right-sided craniotomy. Cervical cord: Partially visualized cervical spinal cord is normal in morphology and signal intensity. IMPRESSION: 1. There is a large hematoma centered in the right temporal lobe which measures up to 3.8 cm. There is significant surrounding edema, and this is new from 07/30/2016. 2. Right frontal encephalomalacia is again noted and consistent with a previous insult. A small amount of hemorrhage is seen in the right frontal lobe anterior/inferior to this site. 3. T1 hyperintense debris is present within the encephalomalacia cavity. This could represent chronic change versus blood products. 4. Postoperative change is noted on the right convexity. 5. There is no restricted diffusion identified typical for acute ischemia. No enhancing mass is seen. Electronically signed by: Tae Argueta M.D. 08/14/2016 12:50 PM Laboratory Results 08/14/16 17:15 Red Blood Count 4.04, Mean Corpuscular Volume 92.3, Mean Corpuscular Hemoglobin 30.7, Mean Corpuscular Hemoglobin Concent 33.2, Mean Platelet Volume 8.3, Neutrophils (%) (Auto) 73.6, Lymphocytes (%) (Auto) 15.6, Monocytes (%) (Auto) 7.1, Eosinophils (%) (Auto) 2.7, Basophils (%) (Auto) 0.2, Neutrophils # (Auto) 3.81, Lymphocytes # (Auto) 0.81, Monocytes # (Auto) 0.37, Eosinophils # (Auto) 0.14, Basophils # (Auto) 0.01 08/14/16 17:15 Test 08/14/16 17:15 White Blood Count 5.18 K/uL (4.8-10.8) Red Blood Count 4.04 M/uL (4.7-6.1) Hemoglobin 12.4 g/dL (14.0-18.0) Hematocrit 37.3 % (42-52) Mean Corpuscular Volume 92.3 fL (80-100) Mean Corpuscular Hemoglobin 30.7 pg (25-34) Mean Corpuscular Hemoglobin Concent 33.2 g/dl (32-36) Platelet Count 249 K/uL (130-400) Mean Platelet Volume 8.3 fL (7.4-10.4) Neutrophils (%) (Auto) 73.6 % Lymphocytes (%) (Auto) 15.6 % Monocytes (%) (Auto) 7.1 % Eosinophils (%) (Auto) 2.7 % Basophils (%) (Auto) 0.2 % Neutrophils # (Auto) 3.81 K/uL (1.4-6.5) Lymphocytes # (Auto) 0.81 K/uL (1.2-3.4) Monocytes # (Auto) 0.37 K/uL (0.11-0.59) Eosinophils # (Auto) 0.14 K/uL (0-0.5) Basophils # (Auto) 0.01 K/uL (0-0.2) RDW Standard Deviation 44.9 fL (36.4-46.3) RDW Coefficient of Variation 13.3 % (11.5-14.5) Immature Granulocyte % (Auto) 0.8 % Immature Granulocyte # (Auto) 0.04 K/uL (0.00-0.02) Prothrombin Time 10.0 SECONDS (9.0-12.0) Prothromb Time International Ratio 0.9 (0.9-1.1) Activated Partial Thromboplast Time 24.5 SECONDS (21.0-31.0) Partial Thromboplastin Ratio 0.9 Anion Gap 7.0 mmol/L (3-11) Est Creatinine Clear Calc Drug Dose 88.4 ml/min Estimated GFR () 107.3 Estimated GFR (Non- 92.5 BUN/Creatinine Ratio 17.6 (10-20) Calcium Level 9.7 mg/dl (8.5-10.1) Troponin I < 0.015 ng/ml (0-0.045) Laboratory results as reviewed by me. Medications Administered Medications (Trade) Dose Ordered Sig/Melissa Route Start Time Stop Time Status Last Admin Dose Admin Nicardipine HCl/ Sodium Chloride (Cardene Iv/Nss 250ml) 250 ml @ 0 mls/hr Q0M STAT IV 08/14/16 17:36 08/14/16 17:38 DC 08/14/16 17:55 50 MLS/HR ECG Indication: other (hypertension) Rate (beats per minute): 64 Rhythm: normal sinus (normal sinus rhythm) Findings: 1st degree AV block, no acute ischemic change, no ectopy ED Course 172: The patient was evaluated in room A2. A complete history and physical exam was performed. 173: Nicardipine HCl 25 mg/Sodium Chloride 250 ml @ 0 mls/hr IV. 174: I discussed the patients case with Dr. Watkins, [facility]. He has accepted the patient as a transfer to [facility]. 175: I reevaluated the patient. His blood pressure is 175/85. His Nicardipine drip is running. I discussed transferring the patient to [facility] with his family and they verbalized complete understanding and agreement. 180: Our community living specialist informed me [facility] is unable to fly the patient to [place] due to weather. I will contact [facility]. 181: I reevaluated the patient. His blood pressure is 144/72. We are cutting back on his Nicardipine drip to 50 mls/hr. 183: Our community living specialist informed me [facility] Steward will be here to collect the patient around 1900 this evening. 1909: I reevaluated the patient. He is still asymptomatic. His blood pressure is 160/83 and the Nicardipine drip is at 2.5 mg/hr. [facility] Steward is here to pick him up. Medical Decision This is a 75-year-old male who presents with an abnormal MRI. I did perform a limited focused review of portions of the patient's old chart on the electronic medical record. The patient had an MRI of the brain earlier today which showed a large hematoma in the right temporal lobe. There is also a small amount of hemorrhage in the right frontal lobe. I did evaluate the patient as noted above. The patient as noted. Neurologic findings. It is unclear why he has a new temporal lobe hematoma. He did fall 2 days ago and this was unwitnessed. He was not evaluated at that time. He currently has no complaints. IV access was established. The patient was placed on a continuous youth nutritional monitor. He is severely hypertensive. I did treat him with a nicardipine drip. I did order and personally review the patient's 12-lead EKG as described above. I did order and review the patient's blood work as noted in the electronic medical record. I did review the images of the MRI done today myself as well as the radiology report as described above. I also showed the images to the patient's family. I did discuss the case with the neurosurgeon at [facility] who accepted the patient for transfer. I did reassess the patient multiple times and monitored his blood pressure carefully. I did decreases nicardipine drip to 2.5 mg per hour IV. He was transferred via helicopter to [facility]. Consults Time Called: 1739 Consulting Physician: Dr. Watkins, [facility] Returned Call: [phone] I discussed the patients case with Dr. Watkins, [facility]. He has accepted the patient as a transfer to [facility]. Impression Primary Impression: Intracerebral hemorrhage Additional Impression: Hypertensive emergency Critical Care I have personally spent greater than 35 minutes of critical care time in the direct management of this patient. This includes bedside care, interpretation of diagnostic studies, and testing, discussion with consultants, patient, and family members, and other required patient management activities. This 35 minutes is in excess of all separately billable procedures. Scribe Attestation The scribe's documentation has been prepared under my direct and personally reviewed by me in its entirety. I confirm that the note above accurately reflects all work, treatment, procedures, and medical decision making performed by me. Departure Information Dispostion Transfer Acute Care Facility (The patient is being transferred to [facility]) Referrals [facility] (PCP) Patient Instructions My [facility] Problem Qualifiers Primary Impression: Intracerebral hemorrhage Encounter type: initial encounter Laterality: right Loss of consciousness presence/duration: without LOC
== END 2016-08-14 19:29 | disposition short-term general hospital (02) ==
LOC: EDBD 17:01 → C.EDA 17:03
DX: I61.9 Nontraumatic intracerebral hemorrhage, unspecified (principal); I16.1 Hypertensive emergency; Z98.890 Other specified postprocedural states; E03.9 Hypothyroidism, unspecified; Z91.81 History of falling; Z85.820 Personal history of malignant melanoma of skin; M81.0 Age-related osteoporosis without current pathological fracture; Z82.0 Family history of epilepsy and other diseases of the nervous system; Z85.850 Personal history of malignant neoplasm of thyroid; E89.0 Postprocedural hypothyroidism; Z82.62 Family history of osteoporosis; Z79.899 Other long term (current) drug therapy

== ENCOUNTER → 2016-08-14 | Outpatient (CLI) | payer OTHER ==
[~2016-08-14] MED LIST changes: +GADAVIST IV PRN
--- NOTE | 2016-08-14 12:51 | DIAGNOSTIC IMAGING REPORT ---
MRI OF THE BRAIN COMBO CLINICAL HISTORY: Follow-up intracranial hemorrhage. COMPARISON STUDY: CT of the brain dated 07/30/2016. TECHNIQUE: MRI of the brain was performed utilizing various T1 and T2-weighted sequences in the axial, sagittal, and coronal planes. Contrast-enhanced sequences were acquired following the administration of 7.8 cc of Gadavist. FINDINGS: Brain parenchyma: There is a large hematoma centered in the right temporal lobe which measures 2.8 x 3.8 x 3.5 cm. There is surrounding edema with effacement of the overlying cortical sulci and the right lateral ventricle. Only minimal midline shift is seen. A large focus of right frontal encephalomalacia is similar to previous. A small volume of hemorrhage is also seen within the right frontal lobe anterior and inferior to the site of encephalomalacia. This measures up to 11 mm. T1 hyperintense material within the encephalomalacia cavity may represent chronic change or blood products. There is no restricted diffusion typical for acute ischemia. No enhancing mass lesion is identified on the postcontrast images. There are age-related involutional changes noting mild patchy subcortical and periventricular microangiopathic disease. Mild dural thickening and enhancement due to the right-sided craniotomy site likely represents postoperative change. No extra-axial fluid collection is seen. The cerebellar tonsils are normal in configuration. Ventricles, sulci, and cisterns: See above. No intraventricular hemorrhage is seen. Pituitary and sella: Mild mucosal thickening is seen within the maxillary antra and ethmoid sinuses. There is a right mastoid effusion. Intracranial vasculature: Normal flow voids are maintained at the skull base. Orbits: The bony orbits are grossly intact. Orbital contents are normal in appearance. Sinuses and mastoids: Clear. Calvarium: There are changes from right-sided craniotomy. Cervical cord: Partially visualized cervical spinal cord is normal in morphology and signal intensity. IMPRESSION: 1. There is a large hematoma centered in the right temporal lobe which measures up to 3.8 cm. There is significant surrounding edema, and this is new from 07/30/2016. 2. Right frontal encephalomalacia is again noted and consistent with a previous insult. A small amount of hemorrhage is seen in the right frontal lobe anterior/inferior to this site. 3. T1 hyperintense debris is present within the encephalomalacia cavity. This could represent chronic change versus blood products. 4. Postoperative change is noted on the right convexity. 5. There is no restricted diffusion identified typical for acute ischemia. No enhancing mass is seen. Electronically signed by: Tae Argueta M.D. 08/14/2016 12:50 PM Dictated Date/Time: 08/14/2016 12:43 PM
== END | disposition home or self-care (01) ==
LOC: C.MRI 11:22
PROVIDERS: ATTEND Internal Medicine Critical Care Medicine
DX: I61.9 Nontraumatic intracerebral hemorrhage, unspecified (principal)

== ENCOUNTER → 2016-08-14 | Outpatient (CLI) | payer OTHER ==
[~2016-08-14] MED LIST changes: -GADAVIST IV PRN
[2016-08-14 09:49] LABS: BASO % 0.4 %; BASO ABS # 0.02 K/uL (0-0.2); COMPLETE YES; EOS % 2.2 %; HEMATOCRIT 34.4 % (42-52); IG% 0.7 %; LYMPH % 11.7 %; LYMPH ABS # 0.64 K/uL (1.2-3.4); MEAN CORPUSCULAR HEMOGLOBIN 30.8 pg (25-34); MEAN CORPUSCULAR HGB CONC 33.1 g/dl (32-36); MEAN PLATELET VOLUME 8.5 fL (7.4-10.4); MONO % 5.9 %; NEUT % 79.1 %; PLATELET COUNT 221 K/uL (130-400); WHITE BLOOD COUNT 5.45 K/uL (4.8-10.8)
== END | disposition home or self-care (01) ==
LOC: C.LABVPSUA 09:31
PROVIDERS: ATTEND Internal Medicine Critical Care Medicine
DX: I61.9 Nontraumatic intracerebral hemorrhage, unspecified (principal)